=== PATIENT | male | born 1980 | race African-American/Black ===

== ENCOUNTER 2016-12-17 13:44 | Emergency (ER) | payer OTHER ==
[~2016-12-17] VITALS: Ht 185.4 cm; Wt 136.3 kg
[2016-12-17] MEDS ORDERED: GABA-531 PO (13:55)
[2016-12-17] MEDS ORDERED: HYDR-309 PO (13:55)
[2016-12-17] MEDS ORDERED: hypertension PO (13:55)
[2016-12-17] MEDS ORDERED: HYDR-3971 PO (13:58)
[2016-12-17] MEDS ORDERED: AMLO10TA55 PO (13:58)
[2016-12-17] MEDS ORDERED: HYDROCODONE/ACETAMINOPHEN 5-325 MG TABLET PO ONE (18:00)
[2016-12-17 19:21] VITALS: BP 133/83
== END 2016-12-17 19:59 | disposition home or self-care (01) ==
LOC: EMS 13:47
DX: S63.92XA Sprain of unspecified part of left wrist and hand, initial encounter (principal); G89.29 Other chronic pain; M54.2 Cervicalgia; M54.5 Low back pain; F17.210 Nicotine dependence, cigarettes, uncomplicated; I10 Essential (primary) hypertension; F12.10 Cannabis abuse, uncomplicated; Z91.013 Allergy to seafood; V89.2XXA Person injured in unspecified motor-vehicle accident, traffic, initial encounter; Y93.89 Activity, other specified; Y92.413 State road as the place of occurrence of the external cause; Y99.9 Unspecified external cause status
CPT/HCPCS: 72040; 72100; 99284